=== PATIENT | male | born 1970 | race Two or more races ===

== ENCOUNTER 2023-01-15 14:40 | Emergency (ER) | payer OTHER ==
[~2023-01-15] VITALS: Ht 182.9 cm; Wt 88.5 kg
[~2023-01-15 14:40] MED LIST: ORPH100T PO
== END 2023-01-15 23:00 | disposition home or self-care (01) ==
LOC: ER 14:40
DX: N20.9 Urinary calculus, unspecified (principal); R10.32 Left lower quadrant pain; R53.81 Other malaise
CPT/HCPCS: 36415; 74177; Q9965